=== PATIENT | female | born 1975 | race African-American/Black ===

== ENCOUNTER 2017-06-13 12:41 | Emergency (ER) | payer OTHER ==
--- NOTE | ~2017-06-13 | CT98 ---
[facility] A Service of [facility] RADIOLOGY TEXT RESULTS PATIENT: MATT LOERA LOCATION: [facility] : 73 UNIT #: [id number] AGE: [address]: Rocío Adams APRN SEX: F ORDER DR: [id number] [facility] [address] [place], [place] [address] [id number] E MR#: [id number] Acc #: [id number] NAME: MATT LOERA : 1975 SEX: F STUDY DATE/TIME: 06/13/2017 14:55 UNIT: [facility]FT[facility] ROOM: STUDY DESCRIPTION: CT Lumbar Spine Wo Cont Attending Physician: Rocío Adams A.P.R.N. Ordering Physician: Bhavik Bermeo M.D. Primary Care Physician: Ramila Orellana M.D. MEDICAL IMAGING REPORT This report is preliminary unless electronic signature is present EXAM CT lumbar spine without contrast DATE: 05/22/2017 HISTORY 42-year-old female with right leg pain radiating between the knee and hip since 06/12/2017. No documented injury. COMPARISON None. PROCEDURE 2 mm noncontrast axial images through the lumbar spine. Sagittal and coronal reformatted images were obtained. This CT exam was performed with one or more of the following radiation dose reduction techniques: automatic exposure control, adjustment of mA and/or kV according to patient size, and iterative reconstruction. FINDINGS No lumbar spine fracture or subluxation is seen. There are small Schmorl node protrusions at the inferior L2 and superior L4 endplates. Disc space height appears preserved. There are degenerative changes of bilateral sacroiliac joints with vacuum phenomenon within the joint spaces and mild sclerosis along the sacral margins of the joints. Mild posterior disc osteophyte formation is demonstrated on the right at L2-3 resulting in mild right anterior canal stenosis but no significant neural foraminal narrowing is appreciated. Mild bilateral facet arthropathy. At L3-4, there is mild concentric disc bulge with right paracentral disc osteophyte formation extending to the articular surface. There is [facility] A Service of [facility] RADIOLOGY TEXT RESULTS PATIENT: MATT LOERA LOCATION: [facility] : 73 UNIT #: [id number] AGE: [address]: Rocío Adams APRN SEX: F ORDER DR: canal stenosis, and moderate to severe right neural foraminal narrowing is thought to be present. At L4-5, there is concentric disc bulge slightly centric toward the right paracentral to subarticular region. Mild left facet arthropathy. There is moderate canal stenosis and suspected mild bilateral inferior neural foraminal narrowing. At L5-S1, there is broad-based disc bulge, mild bilateral facet arthropathy with ligament flavum hypertrophy. Suspected moderate canal stenosis, suspected moderate right neural foraminal narrowing. Study is attenuated by patient body habitus. IMPRESSION 1. Degenerative changes lumbar spine. There does appear to be moderate canal stenosis at L5-S1 with suspected moderate right neural foraminal narrowing on the basis of broad-based disc bulge. Additionally, there is a disc bulge with a probable central protrusion at L4-5 with moderate canal stenosis and probable mild right inferior neural foraminal narrowing. 2. At L3-4, there is a concentric disc bulge with probable mild canal stenosis, but moderate right neural foraminal narrowing is thought to be present. 3. Degenerative changes of the bilateral sacral iliac joints. 4. If surgical intervention is contemplated, dedicated MRI of the lumbar spine without contrast would be recommended for additional evaluation of discogenic disease, canal or foraminal stenosis. Dictated by... Samantha Erickson M.D. THIS IS AN ELECTRONICALLY VERIFIED REPORT Samantha Erickson M.D. at 06/14/2017 7:08 AM Mart TD: 06/14/2017 04:04 JOB #: [id number] MEDICAL IMAGING REPORT Page 1 of 1 COPY
[2017-06-13 14:42] LABS: URINE SOURCE CLEAN CATCH
[2017-06-13 14:54] LABS: URINE APPEARANCE CLOUDY; URINE BILIRUBIN NEG (NEG); URINE BLOOD 3+ (NEG); URINE COLOR ORANGE; URINE GLUCOSE >1000 MG/DL (NEG); URINE KETONE NEG (NEG); URINE LEUKOCYTE ESTERASE TRACE (NEG); URINE NITRATE NEG (NEG); URINE PH 5.5 (5-8); URINE PROTEIN 1+ (NEG); URINE SPECIFIC GRAVITY 1.049 (1.003-1.035); URINE UROBILINOGEN 0.2 MG/DL (NEG)
[2017-06-13 14:58] LABS: CULTURE INDICATED? YES; U HYALINE CASTS AUWI 0-2 /[LPF]; URBCS1 AUWI INNUM /[HPF] (0-2); URINE BACTERIA AUWI 1+ (NEGATIVE); URINE SQUAMOUS EPITHELIAL CELL OCC /[HPF]
== END 2017-06-13 16:28 | disposition home or self-care (01) ==
LOC: CED 12:41 → CFTX 12:41
PROVIDERS: Nurse Practitioner
DX: M51.16 Intervertebral disc disorders with radiculopathy, lumbar region (principal); M51.26 Other intervertebral disc displacement, lumbar region
CPT/HCPCS: 72131; 81003; 84703; 87086; 99283; J1100